=== PATIENT | male | born 1975 | race Hispanic/Latino ===

== ENCOUNTER 2017-12-15 09:01 | Inpatient (IN) | payer OTHER ==
[2017-12-15] MEDS ORDERED: SODIUM CHLORIDE FLUSH SYRINGE 10 ML IV PRN ×2 (09:06→09:59)
[2017-12-15] MEDS ORDERED: MORPHINE IV PRN ×2 (09:06→09:59)
[2017-12-15] MEDS ORDERED: TYLENOL PO PRN ×2 (09:06→09:59)
[2017-12-15] MEDS ORDERED: PERCOCET 5/325 PO PRN ×2 (09:06→09:59)
[2017-12-15] MEDS ORDERED: ZOFRAN IV PRN ×2 (09:06→09:59)
--- NOTE | 2017-12-15 09:06 | History and Physical Report ---
History of Present Illness Date of examination: 12/15/17 Date of admission: 12/15/17 09:01 Chief complaint: CC Rt Flank Plain for 2 weeks History of present illness: [place]: S/p cysto rpg r ureteroscopy j stent for R ureteral stone.patient in severe R Flank pain for 2 weeks.Pain 10 on scale of 10.No fever or chills. Past History Past Surgical History: Other (RPG andd Cystoscopy) Social history: no significant social history Medications and Allergies Allergies Allergy/AdvReac Type Severity Reaction Status Date / Time No Known Allergies Allergy Verified 12/14/17 17:18 Home Medications Medication Instructions Recorded Confirmed Last Taken Type Ciprofloxacin HCl [Cipro] 500 mg PO BID 12/14/17 12/15/17 12/14/17 21:00 History Fexofenadine HCl [Martha Allergy] 180 mg PO DAILY 12/14/17 12/15/17 12/15/17 08 :00 History HYDROcodone/APAP 5-325 [[place] 1 each PO Q6HR PRN 12/14/17 12/15/17 12/14/17 History 5/325] Tamsulosin [Flomax] 0.4 mg PO DAILY 12/14/17 12/15/17 Unknown History Review of Systems All systems: negative Exam - Constitutional General appearance: Present: no acute distress, well-nourished - EENT Eyes: Present: PERRL ENT: hearing intact, clear oral mucosa - Neck Neck: Present: supple, normal ROM - Respiratory Respiratory effort: normal Respiratory: bilateral: CTA - Cardiovascular Heart Sounds: Present: S1 & S2. Absent: rub, click - Extremities Extremities: pulses symmetrical, No edema Peripheral Pulses: within normal limits - Abdominal General gastrointestinal: Present: soft, non-tender, non-distended, normal bowel sounds Male genitourinary: Present: normal - Integumentary Integumentary: Present: clear, warm, dry - Musculoskeletal Musculoskeletal: gait normal, strength equal bilaterally - Psychiatric Psychiatric: appropriate mood/affect, intact judgment & insight - Neurologic Neurologic: CNII-XII intact, moves all extremities Results - Labs CBC & Chem 7: 12/15/17 11:12 12/15/17 11:12 Assessment and Plan Advance Directives: Yes (Full code) VTE prophylaxis?: Chemical Plan of care discussed with patient/family: Yes - Patient Problems (1) Renal calculus, right Current Visit: Yes Status: Acute Plan to address problem: For Cysto and RPG today (2) BPH (benign prostatic hyperplasia) Current Visit: Yes Status: Chronic Qualifiers: Lower urinary tract symptom presence: symptoms present Plan to address problem: Cont Flomax (3) Allergic rhinitis Current Visit: Yes Status: Chronic Qualifiers: Allergic rhinitis trigger: pollen Allergic rhinitis seasonality: seasonal Qualified Code(s): J30.1 - Allergic rhinitis due to pollen Plan to address problem: On Antihistamines (4) DVT prophylaxis Current Visit: Yes Status: Acute Plan to address problem: lovenox
[2017-12-15] MEDS ORDERED: SODIUM CHLORIDE FLUSH SYRINGE 10 ML IV SCH ×2 (10:00)
[2017-12-15] MEDS ORDERED: LOVENOX SUB-Q SCH ×2 (10:00→12:00)
[2017-12-15] MEDS ORDERED: NACL 0.9% 1000 ML 1,000 ML IV SCH ×3 (10:00→13:00)
[2017-12-15] MEDS ORDERED: PEPCID IV SCH ×2 (10:00→12:00)
[2017-12-15 11:50] LABS: Basophils # (Auto) 0.1 K/mm3 (0.0-0.1); Basophils % (Auto) 0.9 % (0.0-1.8); Eosinophils # (Auto) 0.8 K/mm3 (0.0-0.4); Eosinophils % (Auto) 10.1 % (0.0-4.3); Hematocrit 47.6 % (35.5-45.6); Hemoglobin 16.1 gm/dl (11.8-15.2); Lymphocytes # (Auto) 1.8 K/mm3 (1.2-5.4); Lymphocytes % (Auto) 22.2 % (13.4-35.0); Mean Corpuscular HGB Conc 34 % (32-34); Mean Corpuscular Hemoglobin 31 pg (28-32); Mean Corpuscular Volume 91 fl (84-94); Monocytes # (Auto) 0.8 K/mm3 (0.0-0.8); Monocytes % (Auto) 10.3 % (0.0-7.3); Platelet Count 249 K/mm3 (140-440); Red Blood Count 5.25 M/mm3 (3.65-5.03); Red Cell Distribution Width 13.5 % (13.2-15.2)
[2017-12-15 12:06] LABS: Alanine Aminotransferase 34 units/L (7-56); Albumin 4.4 g/dL (3.9-5); BUN/Creatinine Ratio 21; Blood Urea Nitrogen 17 mg/dL (9-20); Calcium 9.1 mg/dL (8.4-10.2); Hemolysis Index 27
--- NOTE | 2017-12-15 12:42 | Anesthesia Consultation ---
Anesthesia Consult and Med Hx Date of service: 12/15/17 - Airway Anesthetic Teeth Evaluation: Good ROM Head & Neck: Adequate Mental/Hyoid Distance: Adequate Mallampati Class: Class II Intubation Access Assessment: Probably Good - Pre-Operative Health Status ASA Pre-Surgery Classification: ASA2 Proposed Anesthetic Plan: General - Pulmonary Hx Smoking: Yes (STOPPED X 1 YR- DIPS TOBACCO) Hx Sleep Apnea: No (PAULA PRE SCREEN LOW RISK) - Cardiovascular System Hx Hypertension: No - Central Nervous System Hx Back Pain: Yes (FROM STONE) - Endocrine Hx Renal Disease: Yes (kidney stone) - Other Systems Hx Cancer: No
--- NOTE | 2017-12-15 12:43 | Anesthesia Day of Surgery ---
Anesthesia Day of Surgery - Day of Surgery Patient Examined: Yes Patient H&P Reviewed: Yes Patient is NPO: Yes
[2017-12-15] MEDS ORDERED: XYLOCAINE MPF 2% ONE (12:50)
[2017-12-15] MEDS ORDERED: DIPRIVAN 10 MG/ML IV ONE ×2 (12:51→13:13)
[2017-12-15] MEDS ORDERED: SUBLIMAZE ONE (12:51)
[2017-12-15] MEDS ORDERED: ANCEF/STERILE WATER 2 GM/20 ML IV NR (13:00)
[2017-12-15] MEDS ORDERED: VERSED IV NR (13:00)
[2017-12-15] MEDS ORDERED: OMNIPAQUE 300 MG/50 ML (CATH LAB) IV ONE (13:12)
[2017-12-15] MEDS ORDERED: WATER FOR IRRIG STERILE IR ONE ×2 (13:13)
[2017-12-15] MEDS ORDERED: DECADRON ONE (13:30)
[2017-12-15] MEDS ORDERED: ZOFRAN ONE (13:35)
--- NOTE | 2017-12-15 14:00 | Post Operative Note ---
Date of procedure: 12/15/17 Pre-op diagnosis: r ureteral stone Post-op diagnosis: same Findings: sig obst Procedure: cysto rpg r ureteroscopy j stent Anesthesia: GETA Surgeon: REBEKAH ETIENNE Estimated blood loss: none Pathology: list (stone) Specimen disposition: given to patient/family Condition: stable Disposition: PACU
--- NOTE | 2017-12-15 14:01 | Discharge Summary ---
Short Stay Discharge Plan Activity: other (no straining ) Weight Bearing Status: Full Weight Bearing Diet: regular Special Instructions: other (do not pull string ) Durable Medical Equipment Needed Upon Discharge: other (has stent ) Follow up with: ELIZABET LEW MD [Primary Care Provider] - 7 Days REBEKAH ETIENNE MD [Staff Physician] - 7 Days
--- NOTE | 2017-12-15 14:29 | Operative Report ---
PREOPERATIVE DIAGNOSIS: Severe right flank pain for 2 weeks, agonizing pain today, yesterday. POSTOPERATIVE DIAGNOSES: Severe right flank pain for 2 weeks, agonizing pain today, yesterday. PROCEDURE: Cystoscopy, right retrograde, right ureteral balloon dilatation, ureteroscopy, stone extraction, J stent. SURGEON: Mohsen Sue MD ANESTHESIA: General. FINDINGS: This is a gentleman who has been suffering with severe flank pain. He has a stone in the distal ureter. All risks and implications discussed. He was admitted as an emergency. DESCRIPTION OF PROCEDURE: The patient brought to the operating room and placed on the operating table. Following induction, he was placed in lithotomy position, prepped and draped in usual sterile fashion. Cystourethroscopy showed severe edema at the right UVJ. We can barely see the stone. Retrograde showed the stone in the distal ureter. A wire coiled in the kidney and balloon dilatation was carried out. Stone was extracted and will be put on the chart for the patient. The patient tolerated the procedure well. No significant complications. We left the string, brought to recovery in stable condition. JOB# [id number] [place]/RUBY
[2017-12-15] MEDS ORDERED: NON-FORMULARY (Fexofenadine Hcl [Allegra Allergy] 180 MG) PO SCH (14:30)
--- NOTE | 2017-12-15 14:46 | Fluoroscopy Report ---
FLUOROSCOPY RETROGRADE UROGRAPHY: FLUOROSCOPY URETER/NEPHROSTOMY DILATATION RIGHT HISTORY: Right ureteral stone. FINDINGS: Fluoroscopy was provided by radiology during retrograde urography by the urologist. 7 fluoroscopic images were captured. No left pyelogram images were saved. Only the distal right ureter is opacified with contrast to the level of S1. The remainder of the right collecting system is not opacified. A stone was identified in the distal right ureter near the UVJ. Subsequent images demonstrate placement of a right ureteral stent which adequately drains the right collecting system on the final image. Please note that CT abdomen pelvis performed the same day demonstrated a stone at the right UVJ. IMPRESSION: Distal right ureteral stone. Right ureteral stent placement.
--- NOTE | 2017-12-15 14:50 | Cat Scan Report ---
CT ABDOMEN PELVIS WITHOUT CONTRAST: HISTORY: Right ureteral stone. COMPARISON: none. TECHNIQUE: Helical CT in 1.25mm intervals without IV contrast. Sagittal and coronal reconstructions. FINDINGS: Lung bases: Normal. Liver: There is moderate to severe diffuse fatty infiltration of the liver. No obvious mass or enlargement. Biliary system: Normal. Pancreas: Normal. Spleen: Normal. Kidneys/ureters/bladder: A 4.5 mm calculus is identified at the right UVJ. There may be minimal right hydroureter. No left ureteral stone. A punctate calculus is noted in the mid right kidney posteriorly. No left nephrolithiasis. No evidence for cystic disease or mass. The bladder is unremarkable. Adrenal glands: Normal. Aorta: Normal. Intestines: Normal. Appendix: Normal. Ascites: None. Adenopathy: None. Musculoskeletal: Normal. IMPRESSION: 4.5 mm calculus at the right UVJ, minimal obstruction. Punctate right renal calyceal stone near mid pole. Fatty changes of the liver.
[2017-12-15] MEDS ORDERED: FLOMAX PO SCH (15:00)
[2017-12-15] MEDS ORDERED: CLARITIN PO SCH (15:30)
[2017-12-15 17:03] VITALS: BP 124/87
== END 2017-12-15 17:30 | disposition home or self-care (01) | DRG 670 ==
LOC: 3A 09:01 → UNDOADMIN 09:01 → 3B-SURG 09:58
PROVIDERS: ADMIT Internal Medicine; ATTEND Internal Medicine
PROC: 0TC68ZZ Extirpation of Matter from Right Ureter, Via Natural or Artificial Opening Endoscopic (ICD-10-PCS; principal; 2017-12-15)
PROC: BT141ZZ Fluoroscopy of Kidneys, Ureters and Bladder using Low Osmolar Contrast (ICD-10-PCS; 2017-12-15)
PROC: 0T768DZ Dilation of Right Ureter with Intraluminal Device, Via Natural or Artificial Opening Endoscopic (ICD-10-PCS; 2017-12-15)
DX: N20.2 Calculus of kidney with calculus of ureter (principal); N40.0 Benign prostatic hyperplasia without lower urinary tract symptoms; J30.2 Other seasonal allergic rhinitis; Z79.899 Other long term (current) drug therapy; Z87.891 Personal history of nicotine dependence
CPT/HCPCS: 36415; 74176; 74420; 80053; 83036; 85025; A4217; C1726; C1758; C1769; C2617; J0690; J1100; J2250; J2405; J2704; J3010; J7030; Q9967